=== PATIENT | female | born 1990 | race Caucasian/White ===

== ENCOUNTER 2016-10-02 09:02 | Outpatient (CLI) | payer BC ==
[~2016-10-02] VITALS: Ht 172.7 cm; Wt 102.3 kg
[~2016-10-02 09:02] MED LIST: FLEXERIL 1010 MG/TAB PO; MOTRIN 400400 MG/TAB PO; RECLIPSEN 0.151 TAB PO; WOMEN'S ONE DAI1 TAB PO
[2016-10-02 09:15] VITALS: BP 126/81; PULSE 95; TEMP 98.3
[2016-10-02] MEDS ORDERED: PRENATAL (09:23)
[2016-10-02 09:30] VITALS: BP 126/81; PULSE 95; TEMP 98.3
[2016-10-02 09:57] VITALS: BP 118/81; PULSE 83
== END 2016-10-02 10:00 | disposition home or self-care (01) ==
LOC: LDRO 09:02
DX: O26.893 Other specified pregnancy related conditions, third trimester (principal); R51 Headache; Z3A.37 37 weeks gestation of pregnancy; Z87.891 Personal history of nicotine dependence

== ENCOUNTER 2016-10-12 10:59 | Inpatient (IN) | payer BC ==
[2016-10-12] VITALS (12 sets, daily range): BP systolic 119–145; BP diastolic 60–85; PULSE 83–123; TEMP 97.4–98.2
[~2016-10-12] VITALS: Ht 172.7 cm; Wt 104.5 kg
[~2016-10-12 10:59] MED LIST changes: +PRENATAL
[2016-10-12 12:31] LABS: BASO % 0.2 % (0.0-2.0); EOS % 0.2 % (0-4.0); GRAN % 78.3 % (42.2-75.2); HEMOGLOBIN 12.3 g/dl (12.5-16.0); LYMPH # 1.8 (1.2-3.4); LYMPH % 15.3 % (20.0-51.0); MEAN CELL VOLUME 88 fl (80.0-100.0); MEAN CORPUSCULAR HEMOGLOBIN 29 pg (27.0-31.0); MEAN CORPUSCULAR HGB CONC 34 g/dl (33.0-37.0); MEAN PLATELET VOLUME 11.5 fl (7.4-10.4); MONO # 0.7 (0.1-0.6); MONO % 5.6 % (1.7-9.3); PLATELET COUNT 233 K/mm3 (130-400); RED BLOOD COUNT 4.18 M/mm3 (4.10-5.30); REDCELL DISTRIBUTION WIDTH-CV 13.2 % (11.5-14.5); WHITE BLOOD COUNT 11.6 K/mm3 (4.8-10.8)
[2016-10-12 12:35] LABS: HEMATOCRIT 36.7 % (37.0-47.0)
[2016-10-13 01:30] VITALS: BP 122/74; PULSE 89; TEMP 98.1
[2016-10-13 08:30] VITALS: BP 117/72; PULSE 98; TEMP 97.9
[2016-10-13 08:41] LABS: BASO % 0.3 % (0.0-2.0); EOS % 0.3 % (0-4.0); GRAN # 8.4 (1.4-6.5); GRAN % 78.6 % (42.2-75.2); LYMPH # 1.5 (1.2-3.4); LYMPH % 13.5 % (20.0-51.0); MEAN CELL VOLUME 90 fl (80.0-100.0); MEAN CORPUSCULAR HGB CONC 33 g/dl (33.0-37.0); MEAN PLATELET VOLUME 11.1 fl (7.4-10.4); MONO # 0.7 (0.1-0.6); MONO % 6.8 % (1.7-9.3); PLATELET COUNT 175 K/mm3 (130-400); RED BLOOD COUNT 3.35 M/mm3 (4.10-5.30); REDCELL DISTRIBUTION WIDTH-CV 13.4 % (11.5-14.5); WHITE BLOOD COUNT 10.7 K/mm3 (4.8-10.8)
[2016-10-13 08:51] LABS: HEMATOCRIT 30.1 % (37.0-47.0); HEMOGLOBIN 9.8 g/dl (12.5-16.0); MEAN CORPUSCULAR HEMOGLOBIN 29 pg (27.0-31.0)
[2016-10-13] MEDS ORDERED: IBU800 M1 PO (09:07)
[2016-10-13] MEDS ORDERED: PERCOCET 325 MG1 TA2 PO (09:07)
[2016-10-13 16:15] VITALS: BP 138/76; PULSE 94; TEMP 97.7
[2016-10-13 21:05] VITALS: BP 119/72; PULSE 108; TEMP 97.2
[2016-10-14 08:11] VITALS: BP 129/80; PULSE 108
== END 2016-10-14 13:05 | disposition home or self-care (01) | DRG 775 ==
LOC: LDRO 10:59 → LDR 11:45 → OB 15:00
PROVIDERS: Student in an Organized Health Care Education/Training Program
PROC: 10E0XZZ Delivery of Products of Conception, External Approach (ICD-10-PCS; principal; 2016-10-12)
PROC: 0KQM0ZZ Repair Perineum Muscle, Open Approach (ICD-10-PCS; 2016-10-12)
DX: O70.1 Second degree perineal laceration during delivery (principal); D62 Acute posthemorrhagic anemia; Z3A.38 38 weeks gestation of pregnancy; O99.02 Anemia complicating childbirth; Z37.0 Single live birth
CPT/HCPCS: J2590; J7120

== ENCOUNTER 2016-10-18 07:41 | Emergency (ER) | payer BC ==
[~2016-10-18] VITALS: Ht 172.7 cm; Wt 97.5 kg
[~2016-10-18 07:41] MED LIST changes: +IBU800 M1 PO; +PERCOCET 325 MG1 TA2 PO
[2016-10-18 07:47] VITALS: BP 133/88; TEMP 99
[2016-10-18 08:21] LABS: BASO % 0.4 % (0.0-2.0); EOS # 0.1 (0.0-0.7); EOS % 1.4 % (0-4.0); GRAN # 5.9 (1.4-6.5); GRAN % 79.9 % (42.2-75.2); LYMPH # 0.8 (1.2-3.4); LYMPH % 10.1 % (20.0-51.0); MEAN CELL VOLUME 91 fl (80.0-100.0); MEAN CORPUSCULAR HGB CONC 33 g/dl (33.0-37.0); MEAN PLATELET VOLUME 9.6 fl (7.4-10.4); MONO # 0.6 (0.1-0.6); MONO % 7.8 % (1.7-9.3); PLATELET COUNT 219 K/mm3 (130-400); RED BLOOD COUNT 3.49 M/mm3 (4.10-5.30); REDCELL DISTRIBUTION WIDTH-CV 13.6 % (11.5-14.5); WHITE BLOOD COUNT 7.4 K/mm3 (4.8-10.8)
[2016-10-18 08:29] LABS: PH 6 (5-8); URINE APPEARANCE Clear; URINE BACTERIA Rare /hpf; URINE BILIRUBIN Negative (NEGATIVE); URINE BLOOD 3+ (NEGATIVE); URINE COLOR Straw; URINE GLUCOSE Negative (NEGATIVE); URINE KETONE Negative (NEGATIVE); URINE RBC 0-2 /hpf; URINE UROBILINOGEN Negative (NEGATIVE)
[2016-10-18 08:30] LABS: HEMATOCRIT 31.7 % (37.0-47.0); HEMOGLOBIN 10.3 g/dl (12.5-16.0); MEAN CORPUSCULAR HEMOGLOBIN 30 pg (27.0-31.0)
[2016-10-18 08:35] LABS: ADJUSTED CALCIUM 9.4 mg/dL (8.4-10.2); ALBUMIN 3.8 gm/dL (3.5-5.0); BILIRUBIN,TOTAL 0.6 mg/dL (0.0-1.0); CALCIUM 9.2 mg/dL (8.4-10.2); CREATININE, serum 0.62 mg/dL (0.52-1.25); POTASSIUM 3.9 mmol/L (3.4-5.0)
[2016-10-18 09:33] VITALS: PULSE 100
== END 2016-10-18 09:34 | disposition home or self-care (01) ==
LOC: COL.ER 07:41
PROVIDERS: Nurse Practitioner
DX: O99.89 Other specified diseases and conditions complicating pregnancy, childbirth and the puerperium (principal); R10.32 Left lower quadrant pain

== ENCOUNTER → 2018-04-20 | Outpatient (CLI) | payer BC | LOC: SUN.DIA 15:35 | DX: O24.419 Gestational diabetes mellitus in pregnancy, unspecified control (principal); Z3A.32 32 weeks gestation of pregnancy | CPT/HCPCS: G0108 ==

== ENCOUNTER → 2018-05-30 | Outpatient (CLI) | payer BC | LOC: SUN.DIA 09:24 | DX: O24.419 Gestational diabetes mellitus in pregnancy, unspecified control (principal); Z3A.38 38 weeks gestation of pregnancy | CPT/HCPCS: G0108 ==

== ENCOUNTER 2018-06-01 20:02 | Outpatient (CLI) | payer BC, OTHER ==
[~2018-06-01] VITALS: Ht 172.7 cm; Wt 105.0 kg
[2018-06-01 20:30] VITALS: BP 137/73; PULSE 107; TEMP 98.4
[2018-06-01] MEDS ORDERED: PRENATAL-U1 CAP PO (20:32)
== END 2018-06-01 21:45 | disposition home or self-care (01) ==
LOC: LDRO 20:02
DX: O62.9 Abnormality of forces of labor, unspecified (principal); Z3A.36 36 weeks gestation of pregnancy

== ENCOUNTER 2018-06-09 15:34 | Outpatient (CLI) | payer BC, OTHER ==
[~2018-06-09] VITALS: Ht 172.7 cm; Wt 105.9 kg
[~2018-06-09 15:34] MED LIST changes: +PRENATAL-U1 CAP PO
[2018-06-09 16:40] VITALS: BP 127/66; PULSE 105; TEMP 98.2
[2018-06-09 17:40] VITALS: BP 122/58; PULSE 100
== END 2018-06-09 18:30 | disposition home or self-care (01) ==
LOC: LDRO 15:34 → LDR 15:40
DX: O62.9 Abnormality of forces of labor, unspecified (principal); Z3A.38 38 weeks gestation of pregnancy

== ENCOUNTER 2018-06-15 11:32 | Inpatient (IN) | payer BC, OTHER ==
[~2018-06-15] VITALS: Ht 172.7 cm; Wt 104.5 kg
[2018-06-15] VITALS (30 sets, daily range): BP systolic 105–134; BP diastolic 53–78; PULSE 86–111; TEMP 97.6–99.8
[2018-06-15 14:07] LABS: BASO % 0.2 % (0.0-2.0); EOS % 0.2 % (0-4.0); GRAN # 8.8 (1.4-6.5); GRAN % 78.9 % (42.2-75.2); HEMOGLOBIN 11.9 g/dl (12.5-16.0); LYMPH # 1.5 (1.2-3.4); LYMPH % 13.8 % (20.0-51.0); MEAN CELL VOLUME 88 fl (80.0-100.0); MEAN CORPUSCULAR HEMOGLOBIN 29 pg (27.0-31.0); MEAN CORPUSCULAR HGB CONC 33 g/dl (33.0-37.0); MONO # 0.7 (0.1-0.6); MONO % 6.5 % (1.7-9.3); PLATELET COUNT 225 K/mm3 (130-400); RED BLOOD COUNT 4.09 M/mm3 (4.10-5.30); REDCELL DISTRIBUTION WIDTH-CV 13.3 % (11.5-14.5)
[2018-06-15 14:12] LABS: HEMATOCRIT 35.8 % (37.0-47.0)
[2018-06-16 00:35] VITALS: BP 108/55; PULSE 95; TEMP 98.9
[2018-06-16 04:55] VITALS: BP 114/66; PULSE 92; TEMP 98.8
[2018-06-16 09:10] VITALS: BP 116/77; PULSE 95; TEMP 98.2
[2018-06-16] MEDS ORDERED: PERCOCET 325 MG1 TA2 PO (10:34)
[2018-06-16] MEDS ORDERED: IBU600 MG PO (10:34)
[2018-06-16 20:00] VITALS: BP 112/65; PULSE 81; TEMP 98.6
[2018-06-17 08:10] VITALS: BP 113/66; PULSE 98; TEMP 97.6
== END 2018-06-17 11:55 | disposition home or self-care (01) | DRG 807 ==
LOC: LDRO 11:32 → LDR 11:40 → OB 23:50
PROVIDERS: Obstetrics & Gynecology
PROC: 10E0XZZ Delivery of Products of Conception, External Approach (ICD-10-PCS; principal; 2018-06-15)
PROC: 0KQM0ZZ Repair Perineum Muscle, Open Approach (ICD-10-PCS; 2018-06-15)
DX: O70.1 Second degree perineal laceration during delivery (principal); Z37.0 Single live birth; O24.420 Gestational diabetes mellitus in childbirth, diet controlled; Z3A.38 38 weeks gestation of pregnancy
CPT/HCPCS: J2590; J2795; J7120

== ENCOUNTER → 2018-06-19 | Outpatient (CLI) | payer BC, OTHER ==
[~2018-06-19] MED LIST changes: +IBU600 MG PO
== END ==
LOC: LAC 11:44
DX: Z39.1 Encounter for care and examination of lactating mother (principal); Z71.89 Other specified counseling